=== PATIENT | female | born 1945 | race Caucasian/White ===

== ENCOUNTER 2019-01-06 12:23 | Emergency (ER) | payer MEDICARE ==
[~2019-01-06] VITALS: Ht 175.3 cm; Wt 80.0 kg
[2019-01-06 13:58] VITALS: BP 138/60
--- NOTE | 2019-01-06 14:08 | NUR ---
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
== END 2019-01-06 15:13 | disposition home or self-care (01) ==
LOC: ER 12:24
DX: R06.02 Shortness of breath (principal); R10.9 Unspecified abdominal pain
CPT/HCPCS: 99283